=== PATIENT | male | born 1985 | race Caucasian/White ===

== ENCOUNTER 2019-02-26 20:16 | Emergency (ER) | payer BC, SELFPAY ==
[2019-02-26 20:18] VITALS: BP 128/82; PULSE 96; RESP 18; TEMP 37.3; O2SAT 98; BMI 23.5
--- NOTE | 2019-02-26 20:38 | ED.VISSUMM ---
- ER Visit Summary Date of Service: 02/26/19 Chief Complaint: Sore throat History of Present Illness: The patient is a 34 M with no primary care physician. He reports he has a sore throat that began 6 days ago. Is 8 out of 10 severity. Is worsened by swallowing. Is taken Tylenol with minimal relief. He went to urgent care 2 days ago and had a negative rapid strep. Patient reports that he has had a fever to 100 degrees and chills. He denies cough. Reports is been nauseated. He denies vomiting. Reports he has a headache that began today. Its diffuse. It is gradually gotten worse. Stated 10 severity. He describes it as throbbing. He does have photophobia. He denies any recent injury to his head. He does have a history of similar headaches. Physical Examination: Vitals: Stable. Afebrile. General: Well-nourished and well-developed. Head: Normocephalic atraumatic. HEENT: Posterior oropharyngeal erythema with bilateral tonsillar enlargement and exudate. There is no evidence of peritonsillar abscess. There is no uvular shift. He does have tender anterior cervical lymphadenopathy. Neck: Supple, no meningismus. No JVD. Nontender. Cardiovascular: Regular rate and rhythm. No murmurs. Respiratory: No respiratory distress. Clear to auscultation bilaterally. Abdominal: Soft, nontender, nondistended, normal bowel sounds. No guarding, rebound, or peritoneal signs. Back: Nontender. Extremities: Nontender, no edema. Skin: Normal color, no rash. Neurologic: Alert and oriented ?3. Cranial nerves II through XII are intact. Normal strength and sensation. Psych: Normal affect. Emergency Department Course and Treatment: Patient had an IV placed. He was given a dose of Toradol, morphine, dexamethasone, and Rocephin IV. I did have a prolonged discussion with him that I suspect that his rapid strep was negative. His Centor score is 4 and while we await the throat culture I feel he should be on antibiotics. We did discuss his headache, he does not want a lumbar puncture. I feel that this is a reasonable course of action and I suspect that his headache is secondary to his fever and dehydration. Treatment Plan: Patient will be discharged with amoxicillin. Instructed to push fluids. Use Tylenol and/or ibuprofen for pain. Follow-up with Dr. Robert Ortiz iii in 1 week if not improving. Return to the emergency department for any worsening symptoms. Disposition: To home in improved and stable condition. Impression: 1. Pharyngitis, presumed strep. This note was generated with [employer] dictation software. It may contain incorrect words, spelling, and punctuation that were not noted in review of the chart prior to signing ED Disposition - Plan for ED Patient: Instructions: ED Strep Pharyngitis Poss Prescriptions: Amoxicillin 500 mg PO TID #30 tablet Referrals: Robert Ortiz III, MD [STAFF PHYSICIAN] - 1 Week if not improving
[2019-02-26] MEDS: 0.9% Normal Saline 1,000 ML 1000 ML IV (20:49)
[2019-02-26] MEDS: Ketorolac 30 MG/ML Syringe IV (20:50)
[2019-02-26] MEDS: dexAMETHasone 10 MG/ML Vial IV (20:52)
[2019-02-26] MEDS: Morphine 4 MG/ML Syringe IV (20:52)
[2019-02-26] MEDS: Ceftriaxone 1 GM/50 ML BAG IV (21:09)
[2019-02-26 22:38] VITALS: BP 131/73; PULSE 70; RESP 16; O2SAT 98
[2019-02-26 23:13] VITALS: BP 131/73; PULSE 70; RESP 16; O2SAT 98
== END 2019-02-26 23:13 | disposition home or self-care (01) ==
PROVIDERS: Emergency Provider Emergency Medicine
DX: J02.9 Acute pharyngitis, unspecified (principal); R11.0 Nausea; R51 Headache; Z72.0 Tobacco use
CPT/HCPCS: 96365; 96366; 96375; 99283; J7030; J7040; A4216